=== PATIENT | female | born 1945 | race Caucasian/White ===

== ENCOUNTER 2019-06-05 15:15 | Inpatient (IN) | payer MEDICARE ==
[~2019-06-05] VITALS: Ht 165.1 cm; Wt 86.6 kg
[2019-06-05] MEDS ORDERED: FLUO40CA49 PO (15:32)
[2019-06-05] MEDS ORDERED: CEPH250C PO (15:32)
[2019-06-05] MEDS ORDERED: PRAVASTATIN PO (15:32)
[2019-06-05] MEDS ORDERED: LOSA100T31 PO (15:32)
[2019-06-05] MEDS ORDERED: ALLEGRA (15:32)
[2019-06-05] MEDS ORDERED: PANT40TA4 PO (15:32)
--- NOTE | 2019-06-05 15:40 | NUR ---
gaby gonzalez at bedside for mse.
[2019-06-05] MEDS ORDERED: PIPERACILLIN SODIUM/TAZOBACTAM 3.375 G in IV DEXTROSE 5% 50 ML IV ONE (15:45)
[2019-06-05] MEDS ORDERED: VANCOMYCIN IV 1,000 MG in IV DEXTROSE 5% 250 ML IV ONE (15:45)
[2019-06-05] MEDS ORDERED: IV NORMAL SALINE 1000 ML BAG IV ONE (15:45)
[2019-06-05] MEDS ORDERED: ACETAMINOPHEN ES 500 MG TABLET PO ONE (15:45)
[2019-06-05 16:14] LABS: BASOPHILS # (AUTO) 0.1 K/uL (0.0-8.0); BASOPHILS % (AUTO) 0.6 % (0.0-2.0); HEMATOCRIT 37.5 % (31.2-41.9); HEMOGLOBIN 12.5 g/dL (10.9-14.3); LYMPHOCYTES # (AUTO) 1.8 K/uL (20.0-40.0); LYMPHOCYTES % (AUTO) 15.2 % (20.5-51.5); MEAN CORPUSCULAR HEMOGLOBIN 32.3 uug (24.7-32.8); MEAN CORPUSCULAR HGB CONC 33 g/dL (32.3-35.6); NEUTROPHILS # (AUTO) 8.7 K/uL (1.8-8.9); NEUTROPHILS % (AUTO) 75.2 % (38.5-71.5); PLATELET COUNT (AUTO) 226 K/uL (179-408); RED BLOOD CELL COUNT(AUTO) 3.87 MIL/uL (3.63-4.92); WHITE BLOOD COUNT (AUTO) 11.6 K/uL (3.8-11.8)
[2019-06-05 16:24] LABS: CREATININE 1.3 mg/dL (0.6-1.3); POTASSIUM 3.7 mmol/L (3.5-5.1)
[2019-06-05 16:38] LABS: BILIRUBIN,DIRECT 0.1 mg/dL (0.0-0.2); BILIRUBIN,TOTAL 0.5 mg/dL (0.2-1.0); TOTAL PROTEIN, SERUM 7.1 g/dL (6.4-8.2)
[2019-06-05] MEDS ORDERED: ACETAMINOPHEN ES 500 MG TABLET ONE (16:39)
[2019-06-05] MEDS ORDERED: PIPERACILLIN/TAZOBACTAM/D5W 50 ML IV ONE (16:39)
[2019-06-05 16:58] LABS: *BILIRUBIN,URIN NEGATIVE (NEGATIVE); *BLOOD, URINE 2+ (NEGATIVE); *COLOR,URINE YELLOW (YELLOW); *KETONES,URINE NEGATIVE (NEGATIVE); *UROBILINOGEN,URINE 0.2 E.U./dl (NORMAL); LEUKOCYTE ESTERASE ,URINE NEGATIVE (NEGATIVE); NITRITE, URINE POSITIVE (NEGATIVE); UGLUCOSE NEGATIVE (NEGATIVE)
[2019-06-05 17:05] LABS: *CLARITY,URINE HAZY (CLEAR)
[2019-06-05 17:07] LABS: BACTERIA,URINE MODERATE /HPF (NONE SEEN); RBC,URINE 20-50 /HPF (0-3); SQUAMOUS EPITHELIAL CELL,UR MODERATE /HPF (NONE SEEN)
[2019-06-05] MEDS ORDERED: VANCOMYCIN IV 200 ML ONE (17:19)
--- NOTE | 2019-06-05 17:40 | NUR ---
admitting report given to olga gresham.
--- NOTE | 2019-06-05 17:41 | NUR ---
Pt. admitted to m/s 315, under care of rubens. Belongs List completed
[2019-06-05 18:09] VITALS: BP 138/54
--- NOTE | 2019-06-05 18:24 | NUR ---
74 year old female received from er via wheelchair to room 315 foe cellulities of the right arm ,pt is axox4 call light with in reach ,family at bed side
[2019-06-05] MEDS ORDERED: Z GUARD REMEDY PASTE 57 GM TUBE TOP PRN (18:30)
[2019-06-05] MEDS ORDERED: HYDROCODONE/APAP 5-325MG TABLET PO PRN (18:30)
[2019-06-05] MEDS ORDERED: ONDANSETRON 4 MG/2 ML VIAL IV PRN (18:30)
[2019-06-05] MEDS ORDERED: MAGNESIUM HYDROXIDE 30 ML LIQUID UDC PO PRN (18:30)
[2019-06-05] MEDS ORDERED: ACETAMINOPHEN 325 MG TABLET PO PRN (18:30)
[2019-06-05] MEDS ORDERED: MORPHINE SULFATE 2 MG/1 ML DISP.SYRIN IV PRN (18:30)
[2019-06-05] MEDS ORDERED: TRAMADOL HCL 50 MG TABLET PO PRN (19:15)
--- NOTE | 2019-06-05 19:30 | NUR ---
Received pt awake, alert and orientedx4. Pt in no acute distress. at bedside. . Iv intact. Safety and comfort provided. Will continue to monitor.
--- NOTE | 2019-06-05 19:34 | NUR ---
CLINICAL PHARMACY NOTE:VANCOMYCIN DOSING Request for vancomycin dosing on 74 y/o female 165.1cm 86.6kg for right arm cellulitis/sepsis Temp 100.5F BUN 30 Scr 1.3 WBC 11.6 also on Zosyn Received vancomycin 1000mg in ER Continue vancomycin 1000mg ivbp q22h estimated trough 15.8. Will order trough prior to 4th dose. Will continue to monitor
[2019-06-05 19:58] VITALS: BP 131/61
[2019-06-05] MEDS: IV 1/2NS 1000 ML 1,000 ML IV PRN (20:00)
[2019-06-05] MEDS: PIPERACILLIN SODIUM/TAZOBACTAM 3.375 G in IV DEXTROSE 5% 50 ML IV SCH (23:20)
[2019-06-05] MEDS: ZOLPIDEM 5 MG TABLET PO PRN (23:32)
[2019-06-06 05:22] VITALS: BP 120/55
[2019-06-06] MEDS: PANTOPRAZOLE SODIUM 40 MG TABLET.DR PO SCH (06:09)
--- NOTE | 2019-06-06 06:12 | NUR ---
Pt in no acute distress. Prescribed medication given and pt tolerated it well. Safety and comfort provided. All needs are met. Will endorse to incoming nurse for continuity of care.
[2019-06-06 06:42] LABS: BASOPHILS % (AUTO) 0.6 % (0.0-2.0); EOSINOPHILS % (AUTO) 0.2 % (0.0-7.0); HEMOGLOBIN 11.9 g/dL (10.9-14.3); LYMPHOCYTES % (AUTO) 26.7 % (20.5-51.5); MEAN CORPUSCULAR HEMOGLOBIN 32.9 uug (24.7-32.8); MEAN CORPUSCULAR HGB CONC 34 g/dL (32.3-35.6); MEAN CORPUSCULAR VOLUME 96.4 fL (75.5-95.3); MONOCYTES # (AUTO) 0.8 K/uL (2.0-10.0); MONOCYTES % (AUTO) 10.5 % (0.0-11.0); NEUTROPHILS # (AUTO) 4.7 K/uL (1.8-8.9); PLATELET COUNT (AUTO) 208 K/uL (179-408); RED BLOOD CELL COUNT(AUTO) 3.63 MIL/uL (3.63-4.92); WHITE BLOOD COUNT (AUTO) 7.7 K/uL (3.8-11.8)
[2019-06-06 07:02] LABS: BILIRUBIN,TOTAL 0.5 mg/dL (0.2-1.0); CREATININE 1.3 mg/dL (0.6-1.3); MAGNESIUM 2.3 mg/dL (1.8-2.4); PHOSPHOROUS 3.8 mg/dL (2.5-4.9); POTASSIUM 3.9 mmol/L (3.5-5.1); TOTAL PROTEIN, SERUM 6.6 g/dL (6.4-8.2)
[2019-06-06 07:03] LABS: THYROID STIMULATING HORMONE 0.321 mIU/mL (0.358-3.740)
[2019-06-06] MEDS: PIPERACILLIN SODIUM/TAZOBACTAM 3.375 G in IV DEXTROSE 5% 50 ML IV SCH (07:40)
[2019-06-06] MEDS: FLUOXETINE HCL 20 MG CAPSULE PO SCH (08:02)
[2019-06-06] MEDS: LOSARTAN POTASSIUM 50 MG TABLET PO SCH (08:13)
[2019-06-06] MEDS: ALBUTEROL SULFATE 2.5 MG/3 ML NEBU NEB PRN (08:52)
[2019-06-06] MEDS ORDERED: PRAVASTATIN PO SCH (09:00)
[2019-06-06] MEDS ORDERED: Medication Not On Formulary EA (Losartan Potassium 1 TAB) PO SCH (09:00)
[2019-06-06] MEDS ORDERED: IPRATROPIUM BROMIDE 0.5 MG/2.5 ML NEBU NEB PRN (09:15)
[2019-06-06] MEDS: IV 1/2NS 1000 ML 1,000 ML IV PRN (10:24)
--- NOTE | 2019-06-06 11:36 | NUR ---
CLINICAL PHARMACY NOTE:VANCOMYCIN DOSING To continue vancomycin dosing on 74 y/o female 165.1cm 86.6kg for right arm cellulitis/sepsis Temp 98F BUN 24 Scr 1.3 WBC 7.7 also on Zosyn Assessment/Plan Renal function remains stable, will cocntinue vancomycin 1000mg ivbp q22h estimated trough 15.8. Second dose today at 1200. Will order trough prior to 4th dose (not ordered yet). Will continue to monitor
[2019-06-06 11:44] VITALS: BP 130/56
[2019-06-06] MEDS: BUDESONIDE 0.5 MG/2 ML NEBU NEB SCH ×2 (12:27→19:46)
[2019-06-06] MEDS: VANCOMYCIN IV 1,000 MG in IV DEXTROSE 5% 250 ML IV SCH (13:36)
[2019-06-06] MEDS: CEFTRIAXONE 1 G in IV DEXTROSE 5% 50 ML IV SCH (14:21)
[2019-06-06 15:26] VITALS: BP 101/44
[2019-06-06] MEDS: ALBUTEROL SULFATE 2.5 MG/3 ML NEBU NEB SCH ×2 (16:10→19:46)
[2019-06-06] MEDS: IPRATROPIUM BROMIDE 0.5 MG/2.5 ML NEBU NEB SCH ×2 (16:10→19:46)
[2019-06-06] MEDS: MONTELUKAST SODIUM 10 MG TABLET PO SCH (17:19)
--- NOTE | 2019-06-06 19:30 | NUR ---
PATIENT ALERT AND ORIENTED X 4. IV IN LEFT HAND INTACT AND PATENT. COMPLIANT WITH ALL MEDICATIONS. IV VANCO AND ROCEPHIN IN THE AM. LEFT ARM CELLULITIS NOTED. WILL CONTINUE TO MONITOR.
[2019-06-06 20:05] VITALS: BP 135/55
[2019-06-06] MEDS: ATORVASTATIN 10 MG TABLET PO SCH (20:19)
[2019-06-06] MEDS: ZOLPIDEM 5 MG TABLET PO PRN (21:44)
[2019-06-07 05:29] VITALS: BP 184/76
[2019-06-07] MEDS ORDERED: hydrALAZINE HCL 25 MG TABLET PO SCH (05:45)
[2019-06-07] MEDS: PANTOPRAZOLE SODIUM 40 MG TABLET.DR PO SCH (06:00)
--- NOTE | 2019-06-07 06:21 | NUR ---
Patient slept on and off during the night. On CPAP for night time slept management. Hydralazine 25 mg given for increased BP. Will continue to monitor.
[2019-06-07 06:35] LABS: CREATININE 1.2 mg/dL (0.6-1.3); POTASSIUM 4.8 mmol/L (3.5-5.1)
[2019-06-07 06:39] VITALS: BP 125/80
[2019-06-07 06:45] LABS: BASOPHILS % (AUTO) 0.6 % (0.0-2.0); EOSINOPHILS % (AUTO) 0.4 % (0.0-7.0); HEMATOCRIT 34.1 % (31.2-41.9); HEMOGLOBIN 11.7 g/dL (10.9-14.3); LYMPHOCYTES % (AUTO) 27.5 % (20.5-51.5); MEAN CORPUSCULAR HEMOGLOBIN 33.8 uug (24.7-32.8); MEAN CORPUSCULAR HGB CONC 34 g/dL (32.3-35.6); MEAN CORPUSCULAR VOLUME 98.7 fL (75.5-95.3); MONOCYTES # (AUTO) 0.8 K/uL (2.0-10.0); MONOCYTES % (AUTO) 10.2 % (0.0-11.0); NEUTROPHILS # (AUTO) 4.5 K/uL (1.8-8.9); NEUTROPHILS % (AUTO) 61.3 % (38.5-71.5); PLATELET COUNT (AUTO) 205 K/uL (179-408); RED BLOOD CELL COUNT(AUTO) 3.45 MIL/uL (3.63-4.92); WHITE BLOOD COUNT (AUTO) 7.4 K/uL (3.8-11.8)
[2019-06-07] MEDS: BUDESONIDE 0.5 MG/2 ML NEBU NEB SCH ×2 (07:36→21:10)
[2019-06-07] MEDS: ALBUTEROL SULFATE 2.5 MG/3 ML NEBU NEB SCH ×4 (07:36→21:10)
[2019-06-07] MEDS: IPRATROPIUM BROMIDE 0.5 MG/2.5 ML NEBU NEB SCH ×4 (07:36→21:10)
[2019-06-07] MEDS: LOSARTAN POTASSIUM 50 MG TABLET PO SCH (08:09)
[2019-06-07] MEDS: FLUOXETINE HCL 20 MG CAPSULE PO SCH (08:09)
[2019-06-07] MEDS: IV 1/2NS 1000 ML 1,000 ML IV PRN (08:23)
[2019-06-07] MEDS ORDERED: GUAIFENESIN/DEXTROMETHORPHAN 5 ML UDC PO PRN (08:30)
[2019-06-07] MEDS: VANCOMYCIN IV 1,000 MG in IV DEXTROSE 5% 250 ML IV SCH (11:28)
[2019-06-07] MEDS: OSELTAMIVIR PHOSPHATE 75 MG CAPSULE PO SCH ×2 (12:08→21:27)
[2019-06-07 12:22] VITALS: BP 148/60
[2019-06-07] MEDS: methylPREDNISolone SOD SUCC 40 MG/ML VIAL IV SCH ×2 (13:36→22:27)
[2019-06-07] MEDS: CEFTRIAXONE 1 G in IV DEXTROSE 5% 50 ML IV SCH (13:36)
--- NOTE | 2019-06-07 14:04 | NUR ---
CLINICAL PHARMACY NOTE:VANCOMYCIN DOSING To continue vancomycin dosing on 74 y/o female 165.1cm 86.6kg for right arm cellulitis/sepsis Temp 98.1F BUN 26 Scr 1.2 WBC 7.4 also on Zosyn Assessment/Plan Renal function remains stable, will cocntinue vancomycin 1000mg ivbp q22h estimated trough 15.8. Third dose today at 1200. Will order trough prior to 4th dose (ordered for tomorrow at 0930). Will continue to monitor
[2019-06-07] MEDS: VANCOMYCIN FOR PO/GT/NG USE PO SCH ×3 (16:12→21:28)
[2019-06-07 16:20] VITALS: BP 142/68
--- NOTE | 2019-06-07 17:11 | NUR ---
1700 VANCOMYCIN PO DOSE HELD BECAUSE PREVIOUS DOSE GIVEN AT 1620 . MADE AWARE
[2019-06-07] MEDS: MONTELUKAST SODIUM 10 MG TABLET PO SCH (17:14)
[2019-06-07] MEDS ORDERED: CLONIDINE HCL 0.1 MG TABLET PO PRN (20:00)
[2019-06-07] MEDS ORDERED: CLONIDINE HCL 0.2 MG TABLET PO ONE (20:00)
--- NOTE | 2019-06-07 20:00 | NUR ---
RECEIVED PATIENT AWAKE IN BED. A/O X4. ON ISOLATION FOR POSSIBLE C-DIFF AND DROPLET FOR INFLUENZA B. IVF INFUSING WELL TO LEFT WRIST #22 GAUGE. INTACT AND PATENT. BP ELEVATED, 172/73. ALL OTHER VSS. AFEBRILE. NOTIFIED DAT-DATE NIGHT CAREGIVER FOR FURTHER ORDERS. CALL LIGHT IN REACH. ALL NEEDS ATTENDED. WILL CONTINUE TO MONITOR AND ASSESS.
--- NOTE | 2019-06-07 20:20 | NUR ---
PATIENT GIVEN CLONIDINE 0.2MG PO PRN FOR ELEVATED TEMP. WILL CONTINUE TO MONITOR AND ASSESS.
[2019-06-07 20:31] VITALS: BP 172/73
[2019-06-07] MEDS: ATORVASTATIN 10 MG TABLET PO SCH (21:27)
[2019-06-07 21:45] VITALS: BP 142/63
--- NOTE | 2019-06-07 21:45 | NUR ---
RECHECKED PATIENTS BLOOD PRESSURE 142/63. ALL OTHER VSS. WILL CONTINUE TO MONITOR AND ASSESS.
[2019-06-07] MEDS: ZOLPIDEM 5 MG TABLET PO PRN (23:20)
[2019-06-08] MEDS: ALBUTEROL SULFATE 2.5 MG/3 ML NEBU NEB PRN (00:10)
[2019-06-08] MEDS: IV 1/2NS 1000 ML 1,000 ML IV PRN ×2 (01:44→17:04)
[2019-06-08] MEDS: methylPREDNISolone SOD SUCC 40 MG/ML VIAL IV SCH ×3 (05:39→22:09)
[2019-06-08 05:49] VITALS: BP 119/80
[2019-06-08] MEDS: PANTOPRAZOLE SODIUM 40 MG TABLET.DR PO SCH (06:15)
--- NOTE | 2019-06-08 06:46 | NUR ---
PATIENT ASLEEP IN BED. SLEPT WELL. CALL LIGHT IN REACH. VSS. ALL NEEDS ATTENDED. WILL CONTINUE TO MONITOR AND ASSESS.
--- NOTE | 2019-06-08 07:25 | NUR ---
Received pt awake, alert and orientedx4. Pt in no acute distress. . . Iv intact. Safety and comfort provided. Will continue to monitor. CALL LIGHT WITH IN REACH
[2019-06-08] MEDS: FLUOXETINE HCL 20 MG CAPSULE PO SCH (08:01)
[2019-06-08] MEDS: LOSARTAN POTASSIUM 50 MG TABLET PO SCH (08:01)
[2019-06-08] MEDS: OSELTAMIVIR PHOSPHATE 75 MG CAPSULE PO SCH ×2 (08:01→20:41)
[2019-06-08] MEDS: VANCOMYCIN FOR PO/GT/NG USE PO SCH ×4 (08:02→20:42)
[2019-06-08 08:14] LABS: BASOPHILS % (AUTO) 0.2 % (0.0-2.0); HEMATOCRIT 36.5 % (31.2-41.9); HEMOGLOBIN 12.2 g/dL (10.9-14.3); LYMPHOCYTES # (AUTO) 0.9 K/uL (20.0-40.0); LYMPHOCYTES % (AUTO) 9.7 % (20.5-51.5); MEAN CORPUSCULAR HEMOGLOBIN 32.9 uug (24.7-32.8); MEAN CORPUSCULAR HGB CONC 33 g/dL (32.3-35.6); MEAN CORPUSCULAR VOLUME 98.7 fL (75.5-95.3); MONOCYTES # (AUTO) 0.2 K/uL (2.0-10.0); MONOCYTES % (AUTO) 2.6 % (0.0-11.0); NEUTROPHILS # (AUTO) 8.5 K/uL (1.8-8.9); NEUTROPHILS % (AUTO) 87.5 % (38.5-71.5); PLATELET COUNT (AUTO) 220 K/uL (179-408); WHITE BLOOD COUNT (AUTO) 9.7 K/uL (3.8-11.8)
[2019-06-08] MEDS: BUDESONIDE 0.5 MG/2 ML NEBU NEB SCH ×2 (08:21→21:40)
[2019-06-08] MEDS: ALBUTEROL SULFATE 2.5 MG/3 ML NEBU NEB SCH ×4 (08:21→21:40)
[2019-06-08] MEDS: IPRATROPIUM BROMIDE 0.5 MG/2.5 ML NEBU NEB SCH ×4 (08:21→21:39)
[2019-06-08 08:53] LABS: CREATININE 1.1 mg/dL (0.6-1.3); MAGNESIUM 1.9 mg/dL (1.8-2.4); PHOSPHOROUS 3.4 mg/dL (2.5-4.9); POTASSIUM 4.4 mmol/L (3.5-5.1)
--- NOTE | 2019-06-08 10:31 | NUR ---
CLINICAL PHARMACY NOTE:VANCOMYCIN DOSING S:To continue vancomycin dosing on 74 y/o female 165.1cm 86.6kg for right arm cellulitis/sepsis O:Temp 98.1F BUN 24 Scr 1.1 WBC 9.7 also on Zosyn Vancomycin trough today at 0955(ordered at 0930 but done 25min later):5.0 Assessment/Plan Since Vancomycin trough is subtherapeutic, will increase dose to 1250mg IV every 13hrs(first dose today at 11) and draw trough by 4th dose(not ordered yet) for expected trough around 15. Will monitor daily.
[2019-06-08] MEDS ORDERED: VANCOMYCIN IV 1,250 MG in IV DEXTROSE 5% 250 ML IV SCH (11:00)
[2019-06-08 11:50] VITALS: BP 140/56
[2019-06-08 15:59] VITALS: BP 140/57
[2019-06-08] MEDS: MONTELUKAST SODIUM 10 MG TABLET PO SCH (17:00)
[2019-06-08] MEDS: ATORVASTATIN 10 MG TABLET PO SCH (20:42)
[2019-06-08 21:01] VITALS: BP 108/60
[2019-06-08] MEDS: ZOLPIDEM 5 MG TABLET PO PRN (22:09)
[2019-06-09] MEDS: methylPREDNISolone SOD SUCC 40 MG/ML VIAL IV SCH (05:33)
[2019-06-09 05:53] VITALS: BP 170/67
[2019-06-09] MEDS: PANTOPRAZOLE SODIUM 40 MG TABLET.DR PO SCH (06:03)
[2019-06-09 06:52] LABS: BASOPHILS % (AUTO) 0.1 % (0.0-2.0); HEMATOCRIT 35.4 % (31.2-41.9); HEMOGLOBIN 11.8 g/dL (10.9-14.3); LYMPHOCYTES # (AUTO) 1.3 K/uL (20.0-40.0); LYMPHOCYTES % (AUTO) 7.7 % (20.5-51.5); MEAN CORPUSCULAR HEMOGLOBIN 32.2 uug (24.7-32.8); MEAN CORPUSCULAR HGB CONC 33 g/dL (32.3-35.6); MEAN CORPUSCULAR VOLUME 96.7 fL (75.5-95.3); MONOCYTES # (AUTO) 0.6 K/uL (2.0-10.0); MONOCYTES % (AUTO) 3.3 % (0.0-11.0); NEUTROPHILS # (AUTO) 15.5 K/uL (1.8-8.9); NEUTROPHILS % (AUTO) 88.9 % (38.5-71.5); PLATELET COUNT (AUTO) 229 K/uL (179-408); RED BLOOD CELL COUNT(AUTO) 3.66 MIL/uL (3.63-4.92); WHITE BLOOD COUNT (AUTO) 17.5 K/uL (3.8-11.8)
[2019-06-09 06:56] LABS: CARBON DIOXIDE 25 mmol/L (21-32); CHLORIDE 106 mmol/L (98-107); CREATININE 1.1 mg/dL (0.6-1.3); GLUCOSE 158 mg/dL (74-106); POTASSIUM 3.9 mmol/L (3.5-5.1); UREA NITROGEN, BLOOD 30 mg/dL (7-18)
--- NOTE | 2019-06-09 07:30 | NUR ---
RECEIVED PATIENT AWAKE IN BED. A/O X4. ON ISOLATIO DROPLET FOR INFLUENZA B. IVF INFUSING WELL TO LEFT WRIST #22 GAUGE. INTACT AND PATENT. VSS. CALL LIGHT IN REACH. ALL NEEDS ATTENDED. WILL CONTINUE TO MONITOR AND ASSESS.
[2019-06-09] MEDS: OSELTAMIVIR PHOSPHATE 75 MG CAPSULE PO SCH (08:08)
[2019-06-09 08:09] VITALS: BP 170/67
[2019-06-09] MEDS: LOSARTAN POTASSIUM 50 MG TABLET PO SCH (08:09)
[2019-06-09] MEDS: FLUOXETINE HCL 20 MG CAPSULE PO SCH (08:09)
[2019-06-09] MEDS: VANCOMYCIN FOR PO/GT/NG USE PO SCH (08:10)
[2019-06-09] MEDS: BUDESONIDE 0.5 MG/2 ML NEBU NEB SCH (08:32)
[2019-06-09] MEDS: ALBUTEROL SULFATE 2.5 MG/3 ML NEBU NEB SCH ×2 (08:32→11:33)
[2019-06-09] MEDS: IPRATROPIUM BROMIDE 0.5 MG/2.5 ML NEBU NEB SCH ×2 (08:32→11:33)
[2019-06-09] MEDS ORDERED: MONT10TA22 PO (11:07)
[2019-06-09] MEDS ORDERED: BUDE180A INH (11:07)
[2019-06-09] MEDS ORDERED: METH4TAB21 PO (11:07)
[2019-06-09] MEDS ORDERED: OSEL75CA PO (11:07)
[2019-06-09] MEDS ORDERED: ALBU18HF2 INH (11:07)
--- NOTE | 2019-06-09 12:06 | NUR ---
dc orders received noted and carried out,dc heplock per md orders.dc instruction and education given to the pt ,pt verbalized understanding all the instruction and follow up with pcp in one week.pt left the facility via private car in stable condition
== END 2019-06-09 12:05 | disposition home or self-care (01) | DRG 871 ==
LOC: ER 15:15 → MEDSURG3 17:37
PROVIDERS: ADMIT Nurse Practitioner Acute Care; ATTEND Nurse Practitioner Acute Care
PROC: 5A09357 Assistance with Respiratory Ventilation, Less than 24 Consecutive Hours, Continuous Positive Airway Pressure (ICD-10-PCS; principal; 2019-06-06)
DX: A41.9 Sepsis, unspecified organism (principal); J96.01 Acute respiratory failure with hypoxia; J96.02 Acute respiratory failure with hypercapnia; N39.0 Urinary tract infection, site not specified; L03.113 Cellulitis of right upper limb; J45.901 Unspecified asthma with (acute) exacerbation; E44.1 Mild protein-calorie malnutrition; J10.1 Influenza due to other identified influenza virus with other respiratory manifestations; G47.33 Obstructive sleep apnea (adult) (pediatric); Z90.13 Acquired absence of bilateral breasts and nipples; Z87.440 Personal history of urinary (tract) infections; Z85.3 Personal history of malignant neoplasm of breast; Z88.2 Allergy status to sulfonamides; Z88.5 Allergy status to narcotic agent; Z87.01 Personal history of pneumonia (recurrent); E66.9 Obesity, unspecified; I10 Essential (primary) hypertension; Z68.31 Body mass index [BMI] 31.0-31.9, adult; I89.0 Lymphedema, not elsewhere classified
CPT/HCPCS: 36415; 71045; 83605; 83735; 84100; 84443; 84481; 85025; 85730; 87040; 87086; 87400; 93005; 94640; 94660; A4663; A9150; G0378; J0696; J2543; J2920; J3370; J3490; J3590; J7030; J7060